=== PATIENT | male | born 1955 | race Caucasian/White ===

== ENCOUNTER → 2020-03-19 | Outpatient (CLI) | payer OTHER | LOC: HYPER 09:48 | DX: L98.492 Non-pressure chronic ulcer of skin of other sites with fat layer exposed (principal); A49.02 Methicillin resistant Staphylococcus aureus infection, unspecified site; B00.89 Other herpesviral infection; R21 Rash and other nonspecific skin eruption; J45.909 Unspecified asthma, uncomplicated; Z96.652 Presence of left artificial knee joint ==

== ENCOUNTER → 2020-04-02 | Outpatient (CLI) | payer OTHER | LOC: HYPER 14:32 | DX: L98.492 Non-pressure chronic ulcer of skin of other sites with fat layer exposed (principal); A49.02 Methicillin resistant Staphylococcus aureus infection, unspecified site; R21 Rash and other nonspecific skin eruption; B00.89 Other herpesviral infection; J45.909 Unspecified asthma, uncomplicated ==

== ENCOUNTER → 2020-05-15 | Outpatient (CLI) | payer OTHER | LOC: HYPER 08:44 | PROVIDERS: ATTEND Emergency Medicine | DX: L98.492 Non-pressure chronic ulcer of skin of other sites with fat layer exposed (principal); B95.62 Methicillin resistant Staphylococcus aureus infection as the cause of diseases classified elsewhere; B00.89 Other herpesviral infection; R21 Rash and other nonspecific skin eruption; J45.909 Unspecified asthma, uncomplicated ==

== ENCOUNTER 2020-05-26 04:46 | Emergency (ER) | payer OTHER ==
[~2020-05-26] VITALS: Ht 167.6 cm; Wt 83.9 kg
[2020-05-26] MEDS ORDERED: VALACYCLOVIR PO (04:59)
[2020-05-26] MEDS ORDERED: PROTONIX40 M2 PO (04:59)
[2020-05-26] MEDS ORDERED: AMITRIPTYLINE PO (05:00)
[2020-05-26] MEDS ORDERED: AMBIEN PO (05:01)
[2020-05-26] MEDS ORDERED: LIDOCAINE TOP (05:05)
[2020-05-26] MEDS ORDERED: TRAMADOL 50 MG50 MG PO (05:06)
[2020-05-26] MEDS ORDERED: MUPIROCIN1 GM TOP (05:07)
[2020-05-26] MEDS ORDERED: ROXICODONE5 M2 PO (05:18)
[2020-05-26 06:17] LABS: ABSOLUTE NEUTROPHILS 5.2 thou/uL (1.4-8.2); BASOPHILS 0.7 % (0.0-2.0); EOSINOPHILS 3.6 % (0.0-3.0); HEMOGLOBIN 11.3 gm/dL (14.0-18.0); LYMPHOCYTES 15.6 % (24.0-44.0); MCH 27.5 pg (26.0-34.0); MCHC 32.2 g/dL (28.0-37.0); MCV 85.2 fL (80.0-100.0); PLATELET COUNT 297 thou/uL (150-400); POLYS 70.1 % (36.0-66.0); RBC 4.11 mil/uL (4.50-6.00); WBC 7.5 thou/uL (4.0-11.0)
[2020-05-26 06:26] LABS: POTASSIUM 3.9 mmol/L (3.5-5.1)
[2020-05-26] MEDS ORDERED: OXYCODONE HCL5 MG PO (06:43)
[2020-05-26 06:51] VITALS: BP 136/73
== END 2020-05-26 06:55 | disposition home or self-care (01) ==
LOC: ER 04:46
PROVIDERS: Emergency Medicine
DX: L02.11 Cutaneous abscess of neck (principal); Z79.899 Other long term (current) drug therapy

== ENCOUNTER → 2020-06-05 | Outpatient (CLI) | payer OTHER ==
[~2020-06-05] MED LIST: AMBIEN PO; AMITRIPTYLINE PO; LIDOCAINE TOP; MUPIROCIN1 GM TOP; OXYCODONE HCL5 MG PO; PROTONIX40 M2 PO; ROXICODONE5 M2 PO; TRAMADOL 50 MG50 MG PO; VALACYCLOVIR PO
== END ==
LOC: HYPER 14:01
PROVIDERS: ATTEND Emergency Medicine
DX: L98.491 Non-pressure chronic ulcer of skin of other sites limited to breakdown of skin (principal); R21 Rash and other nonspecific skin eruption; B00.89 Other herpesviral infection; J45.909 Unspecified asthma, uncomplicated; Z49.02 Encounter for fitting and adjustment of peritoneal dialysis catheter

== ENCOUNTER → 2020-06-19 | Outpatient (CLI) | payer OTHER | LOC: HYPER 11:43 | PROVIDERS: ATTEND Emergency Medicine | DX: L98.491 Non-pressure chronic ulcer of skin of other sites limited to breakdown of skin (principal); B95.62 Methicillin resistant Staphylococcus aureus infection as the cause of diseases classified elsewhere; R21 Rash and other nonspecific skin eruption; B00.89 Other herpesviral infection; J45.909 Unspecified asthma, uncomplicated ==

== ENCOUNTER → 2020-07-30 | Outpatient (CLI) | payer OTHER | LOC: HYPER 14:51 | PROVIDERS: ATTEND Emergency Medicine | DX: L98.492 Non-pressure chronic ulcer of skin of other sites with fat layer exposed (principal); A49.02 Methicillin resistant Staphylococcus aureus infection, unspecified site; R21 Rash and other nonspecific skin eruption; B00.89 Other herpesviral infection; J45.909 Unspecified asthma, uncomplicated ==

== ENCOUNTER → 2020-08-14 | Outpatient (CLI) | payer OTHER | LOC: HYPER 14:08 | PROVIDERS: ATTEND Emergency Medicine | DX: L98.492 Non-pressure chronic ulcer of skin of other sites with fat layer exposed (principal); L97.811 Non-pressure chronic ulcer of other part of right lower leg limited to breakdown of skin; L97.821 Non-pressure chronic ulcer of other part of left lower leg limited to breakdown of skin; L98.421 Non-pressure chronic ulcer of back limited to breakdown of skin; B95.62 Methicillin resistant Staphylococcus aureus infection as the cause of diseases classified elsewhere; R21 Rash and other nonspecific skin eruption; B00.89 Other herpesviral infection; J45.909 Unspecified asthma, uncomplicated ==

== ENCOUNTER → 2020-08-28 | Outpatient (CLI) | payer OTHER | LOC: HYPER 13:02 | PROVIDERS: ATTEND Emergency Medicine | DX: L98.492 Non-pressure chronic ulcer of skin of other sites with fat layer exposed (principal); A49.02 Methicillin resistant Staphylococcus aureus infection, unspecified site; B00.89 Other herpesviral infection; R21 Rash and other nonspecific skin eruption; E66.9 Obesity, unspecified; J45.909 Unspecified asthma, uncomplicated; Z68.28 Body mass index [BMI] 28.0-28.9, adult ==

== ENCOUNTER → 2020-09-11 | Outpatient (CLI) | payer OTHER | LOC: HYPER 13:28 | PROVIDERS: ATTEND Emergency Medicine | DX: L98.492 Non-pressure chronic ulcer of skin of other sites with fat layer exposed (principal); B95.62 Methicillin resistant Staphylococcus aureus infection as the cause of diseases classified elsewhere; R21 Rash and other nonspecific skin eruption; B00.89 Other herpesviral infection; J45.909 Unspecified asthma, uncomplicated ==

== ENCOUNTER → 2020-10-03 | Outpatient (CLI) | payer OTHER ==
[~2020-10-03] VITALS: Ht 170.2 cm; Wt 83.9 kg
[~2020-10-03] MED LIST changes: +APAP650 PO; +BACITRACIN3.5 GM; +BACTROBAN; +DORYX MPC120 MG PO; +IRON325 M1 PO; +LASIX 40 MG TAB40 MG PO; +NORCO 7.5-3251 EACH PO; +POTASSIUM20 PO; +SSD CREAM 1% 5050 GM TOP; +VITAMIN B COMP1 EACH PO; +VITAMIN B-12100 MC1 PO
[2020-10-03 09:37] VITALS: BP 142/78
--- NOTE | 2020-10-03 09:38 | NUR ---
Pain Clinic Assessment: 1. History of Osteoarthritis: Not Applicable History of Rheumatoid Arthritis: Not Applicable 2. Height: 5 ft. 7 in. 170.2 cm. Weight: 185.0 lb. oz. 83.916 kg. Patient's BMI: 29.0 3. Vital Signs: BP: 142/78 Pulse: 75 Resp: 16 Temp: 02 Sat: 100 ECG Mon: 4. Pain Intensity: 9 5. Fall Risk: Dizziness: Y Needs help standing or walking: N Fallen in the last 3 months: N Fall risk comments: 6. Patient on Blood Thinner: None 7. History of Hypertension: N 8. Opioid Therapy greater than 6 weeks: Y Opiate Contract Signed: 9. Risk Assessment Tool Provided: 6-MOD 10. Functional Assessment Tool: 11. Recreational Drug Use: Never Drug Type: Tobacco Use: Never Smoker Tobacco Type: Amount or Packs/day: How Many Years: Alcohol Use: Past use Frequency: Quant:
== END ==
LOC: PAIN 06:48
PROVIDERS: ATTEND Anesthesiology Pain Medicine
DX: L08.89 Other specified local infections of the skin and subcutaneous tissue (principal); B95.62 Methicillin resistant Staphylococcus aureus infection as the cause of diseases classified elsewhere; G89.29 Other chronic pain

== ENCOUNTER → 2020-10-09 | Outpatient (CLI) | payer OTHER | LOC: HYPER 15:27 | PROVIDERS: ATTEND Emergency Medicine | DX: L98.492 Non-pressure chronic ulcer of skin of other sites with fat layer exposed (principal); B95.62 Methicillin resistant Staphylococcus aureus infection as the cause of diseases classified elsewhere; B00.89 Other herpesviral infection; R21 Rash and other nonspecific skin eruption; J45.909 Unspecified asthma, uncomplicated ==

== ENCOUNTER → 2020-11-04 | Outpatient (CLI) | payer OTHER | LOC: HYPER 13:46 | PROVIDERS: ATTEND Emergency Medicine | DX: L98.492 Non-pressure chronic ulcer of skin of other sites with fat layer exposed (principal); A49.02 Methicillin resistant Staphylococcus aureus infection, unspecified site; R21 Rash and other nonspecific skin eruption; B00.89 Other herpesviral infection; E66.9 Obesity, unspecified; J45.909 Unspecified asthma, uncomplicated; Z68.28 Body mass index [BMI] 28.0-28.9, adult ==

== ENCOUNTER → 2020-11-14 | Outpatient (CLI) | payer OTHER | LOC: HYPER 10:04 | PROVIDERS: ATTEND Emergency Medicine | DX: L98.492 Non-pressure chronic ulcer of skin of other sites with fat layer exposed (principal); A49.02 Methicillin resistant Staphylococcus aureus infection, unspecified site; R21 Rash and other nonspecific skin eruption; B00.89 Other herpesviral infection; E66.9 Obesity, unspecified; J45.909 Unspecified asthma, uncomplicated; Z68.28 Body mass index [BMI] 28.0-28.9, adult ==

== ENCOUNTER → 2020-12-04 | Outpatient (CLI) | payer OTHER | LOC: HYPER 10:42 | PROVIDERS: ATTEND Emergency Medicine | DX: L98.492 Non-pressure chronic ulcer of skin of other sites with fat layer exposed (principal); A49.02 Methicillin resistant Staphylococcus aureus infection, unspecified site; R21 Rash and other nonspecific skin eruption; B00.89 Other herpesviral infection; E66.9 Obesity, unspecified; J45.909 Unspecified asthma, uncomplicated; Z68.28 Body mass index [BMI] 28.0-28.9, adult ==

== ENCOUNTER → 2021-01-06 | Outpatient (CLI) | payer OTHER | LOC: HYPER 13:54 | PROVIDERS: ATTEND Emergency Medicine | DX: L98.492 Non-pressure chronic ulcer of skin of other sites with fat layer exposed (principal); B95.62 Methicillin resistant Staphylococcus aureus infection as the cause of diseases classified elsewhere; R21 Rash and other nonspecific skin eruption; J45.909 Unspecified asthma, uncomplicated; Z79.899 Other long term (current) drug therapy ==

== ENCOUNTER → 2021-02-05 | Outpatient (CLI) | payer OTHER ==
[~2021-02-05] MED LIST changes: +AMBIEN 5 MG TABL5 M1 PO; +AMITRIPTYLINE H50 M2 PO; +ARIPIPRAZOLE2 MG PO; +DOXEPIN 50MG CA50 M1 PO; +FAMOTIDINE40 MG PO; +FUROSEMIDE 40 M40 M1 PO; +LEVOTHYROXINE50 MCG PO; +MELOXICAM15 MG PO; +NEURONTIN 300M300 M2 PO; +NORCO7.5 PO; +PROAIR HFA8.5 GM INH; +SUPER B-50 COM1 EACH PO; +VALACYCLOVIR1000 MG PO; +VITAMIN D31250 MC1 PO; +VOLTAREN GEL 1100 G1 TOP
== END ==
LOC: LAB 07:55
PROVIDERS: Student in an Organized Health Care Education/Training Program; ATTEND Surgery
DX: Z01.812 Encounter for preprocedural laboratory examination (principal); Z20.822 Contact with and (suspected) exposure to COVID-19

== ENCOUNTER 2021-02-06 07:20 | Day surgery (SDC) | payer OTHER ==
[~2021-02-06] VITALS: Ht 170.2 cm; Wt 86.2 kg
[2021-02-06 08:37] LABS: CALCIUM 9.1 mg/dL (8.5-10.1); CREATININE 1.1 mg/dL (0.7-1.3); POTASSIUM 4.5 mmol/L (3.5-5.1)
[2021-02-06 10:58] VITALS: BP 123/72
--- NOTE | 2021-02-09 17:06 | PATH ---
[facility] [address] [place] [address] PATHOLOGY RPT PROCEDURE Name: ZINA NIETO Room #: DEP [facility] M.R.#: [id number] Admission: 02/06/21 Date of : 59 Discharge: 02/06/21 Report #: [id number] Path Case #: [id number] LCA Accession Number: [id number] . 01 Material submitted: . neck - POSTERIOR NECK WOUND. Modifiers: posterior . 02 Diagnosis: Posterior neck wound, debridement: - Fragments of fibrovascular connective tissue with extensive fibrinoid degeneration as well as marked acute inflammation, compatible with wound. 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 02 Electronically signed: . Magali Stanley MD, Pathologist NPI- [id number] . 01 Gross description: . Received in formalin labeled "Fanta, Zina, posterior neck wound tissue" are multiple portions of roughened weeks-brown soft tissue measuring in aggregate 4.3 x 4.0 x 0.5 cm. Skin is not definitively identified. [employer] Registrar tissue is submitted in A1. [place] [place]21[place] [facility] 02/06/2021 1545 Local . 02 Pathologist provided ICD-10: L98.9 . 02 CPT . 122895 Specimen Comment: A courtesy copy of this report has been sent to [phone] Specimen Comment: Report sent to Performed at: [address], [place] [id number] MD Vasiliy Lopez MD Phone: [phone] Performed at: [address] [id number] MD Magali Stanley MD Phone: [phone]
--- NOTE | 2021-02-12 09:27 | O ---
[facility] [place] [address] OPERATIVE REPORT Name: ZINA NIETO Room #: DEP [facility] Wing.#: [id number] Admission: 02/06/21 Attend Phys: Jose Hatch MD Discharge: 02/06/21 Date of : 59 Report #: [id number] THIS REPORT FOR: cc: Sharlene Kulkarni Shanna R. DO Joseph, Sigi P. MD ~ DATE OF SERVICE: 02/06/2021 PREOPERATIVE DIAGNOSIS: Chronic nonhealing neck wound. POSTOPERATIVE DIAGNOSIS: Chronic nonhealing neck wound. OPERATIVE PROCEDURE DONE: 1. Excisional debridement of the chronic neck wound. 2. Debridement with a Sonic VAC. 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 INDICATIONS FOR THE PROCEDURE: The patient is a 65-year-old male who presented with chronic wound that he has been having for more than 3 years following the lesion excision. This has been increasing in size. Of late, he has been having significant itching. Patient is advised excisional debridement. DESCRIPTION OF PROCEDURE: After explaining to the patient in detail and informed consent was obtained, the patient was identified in the preoperative holding area. The patient was transferred to the operating room and was placed in supine position. Initially, after induction of anesthesia, the patient was placed in prone position. The neck was prepped and draped in a sterile fashion. Some of the chronic fibrotic tissue and necrotic eschar was excised using #15 blade. Thereafter, I used a Sonic VAC to debride all the superficial tissue. There were healing edges that were noted in the inferior part of the wound. The total measurement of the wound was 13 cm in length and about 12.5 cm in width, very minimally deep and is almost at the level of the skin. A small excess tissue was sent for pathology and also for culture and sensitivity, and a nonadherent Xeroform Dressing was placed. The patient was stable at the end of the procedure. The patient was awoken from anesthesia and was transferred to the recovery room in stable condition. ESTIMATED BLOOD LOSS: Approximately 10 mL. CONDITION OF THE PATIENT: Stable. FLUIDS GIVEN: Per anesthesia notes. [address] [address] OPERATIVE REPORT Name: ZINA NIETO Room #: DEP [facility].#: [id number] Admission: 02/06/21 Attend Phys: Jose Hatch MD Discharge: 02/06/21 Date of : 59 Report #: [id number] SPECIMEN SENT: Excised tissue for culture and sensitivity and biopsy. CONDITION OF THE PATIENT: Stable. <ELECTRONICALLY SIGNED> By: Jose Hatch MD 02/12/21 0927 0953 1022 Jose Hatch MD /nt
[2021-02-12] MEDS ORDERED: ACYCLOVIR 200200 MG PO (15:54)
== END 2021-02-06 10:40 | disposition home or self-care (01) ==
LOC: OR 07:20 → TBA 09:36 → OR 10:23
PROVIDERS: ATTEND Surgery
DX: T81.89XA Other complications of procedures, not elsewhere classified, initial encounter (principal); S11.90XA Unspecified open wound of unspecified part of neck, initial encounter; L98.9 Disorder of the skin and subcutaneous tissue, unspecified; E03.9 Hypothyroidism, unspecified; J45.909 Unspecified asthma, uncomplicated; K21.9 Gastro-esophageal reflux disease without esophagitis; Z98.890 Other specified postprocedural states; Z79.899 Other long term (current) drug therapy; Z96.652 Presence of left artificial knee joint
CPT/HCPCS: 50010; 50101; 50386; 50403; 57119; 57120; 62110; 62900; 70005

== ENCOUNTER → 2021-02-12 | Outpatient (CLI) | payer OTHER ==
[~2021-02-12] MED LIST changes: +ACYCLOVIR 200200 MG PO
== END ==
LOC: HYPER 14:33
PROVIDERS: ATTEND Emergency Medicine
DX: L98.492 Non-pressure chronic ulcer of skin of other sites with fat layer exposed (principal); B95.62 Methicillin resistant Staphylococcus aureus infection as the cause of diseases classified elsewhere; B00.89 Other herpesviral infection; R21 Rash and other nonspecific skin eruption; J45.909 Unspecified asthma, uncomplicated; E66.9 Obesity, unspecified; Z68.28 Body mass index [BMI] 28.0-28.9, adult; Z79.899 Other long term (current) drug therapy

== ENCOUNTER → 2021-02-12 | Outpatient (CLI) | payer OTHER | LOC: LAB 14:36 | PROVIDERS: ATTEND Internal Medicine Gastroenterology | DX: Z01.812 Encounter for preprocedural laboratory examination (principal); Z20.822 Contact with and (suspected) exposure to COVID-19 ==

== ENCOUNTER → 2021-02-16 | Outpatient (CLI) | payer OTHER ==
[~2021-02-16] VITALS: Ht 170.2 cm; Wt 86.2 kg
[~2021-02-16] MED LIST changes: +VITAMIN E1000 UNI2 PO
--- NOTE | 2021-02-19 14:07 | PATH ---
[facility] [address] [place] [address] PATHOLOGY RPT PROCEDURE Name: ZINA NIETO [id number] Admission: 02/16/21 Date of : 59 Discharge: Report #: [id number] Path Case #: [id number] LCA Accession Number: [id number] . 01 Material submitted: . rectum - RECTAL POLYP . 01 Clinical history: . COLONOSCOPY SCREENING . 02 Diagnosis: Polyp, rectal polyp, endoscopic biopsy: - Tubular adenoma. - Negative for high-grade dysplasia. (IUV:pit 02/18/2021) QTP 02/18/2021 1412 Local . 02 Electronically signed: . Magali Stanley MD, Pathologist NPI- [id number] . 01 Gross description: . Received in formalin labeled "Zina Nieto and rectal polyp". Received are 2 weeks-brown soft tissue fragments ranging from 0.1-0.5 cm. Specimen is entirely submitted in cassette A1.(BLJ; 02/17/2021) . BLJ/BLJ 02/17/2021 1718 Local . 02 Pathologist provided ICD-10: D12.8 . 02 CPT . 999867 Specimen Comment: A courtesy copy of this report has been sent to [phone] Specimen Comment: [phone] Specimen Comment: Report sent to / DR ADRIAN Specimen Comment: A duplicate report has been generated due to demographic updates. Performed at: [address], [place] [id number] MD Vasiliy Lopez MD Phone: [phone] Performed at: [address] [id number] MD Magali Stanley MD Phone: [phone]
== END | disposition home or self-care (01) ==
LOC: GI 08:03
PROVIDERS: ATTEND Internal Medicine Gastroenterology
DX: Z12.11 Encounter for screening for malignant neoplasm of colon (principal); D12.8 Benign neoplasm of rectum; D64.9 Anemia, unspecified; E03.9 Hypothyroidism, unspecified; Z98.890 Other specified postprocedural states; Z79.899 Other long term (current) drug therapy; J45.909 Unspecified asthma, uncomplicated; K21.9 Gastro-esophageal reflux disease without esophagitis; Z96.652 Presence of left artificial knee joint
CPT/HCPCS: 62110; 62900

== ENCOUNTER 2021-03-05 12:01 | Day surgery (SDC) | payer OTHER ==
[~2021-03-05] VITALS: Ht 170.2 cm; Wt 86.2 kg
[2021-03-05 13:18] VITALS: BP 126/72
[2021-03-05] MEDS ORDERED: NORCO7.5 PO (15:39)
[2021-03-05 15:55] VITALS: BP 126/72
--- NOTE | 2021-03-11 11:00 | O ---
[facility] [place] [address] OPERATIVE REPORT Name: EMILIAZINA Room #: DEP [place] M.Caitlyn.#: [id number] Admission: 03/05/21 Attend Phys: Jose Hatch MD Discharge: 03/05/21 Date of : 59 Report #: [id number] THIS REPORT FOR: cc: Sharlene Kulkarni Shanna R. DO Joseph, Sigi P. 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 PROCEDURE: Excisional debridement of the chronic ulcer in the nape of the neck. SURGEON: Dr. Jose Hatch. OPERATIVE FINDINGS: The patient is noted to have a chronic nonhealing ulcer on the nape of the neck measuring approximately about 13.5 cm vertically and about 12 cm in transverse direction. There was some necrotic tissue and chronic scabs that seemed to be layering over the ulcer. The floor of the ulcer had a fibrotic looking base; however, was still noted to have good blood flow. INDICATIONS: The patient is a 65-year-old male who has been having a chronic nonhealing ulcer in the nape of the neck for nearly 7-8 years. The patient had undergone debridement of the wound few weeks ago; however, as it was not showing signs of healing and there was some necrotic tissue, the patient was advised excisional debridement of the same. PROCEDURE IN DETAIL: After explaining to the patient in detail and informed consent was obtained, the patient was identified in the preoperative holding area. The patient was transferred to the operating room and was placed in supine position. After induction of anesthesia, the patient was placed in prone position. The nape of the neck was prepped and draped in a sterile fashion. I scraped all the debris on the surface of the wound initially with a curette and a surgical blade. Some nonhealing unhealthy areas were excised using a #15 surgical blade until there was good bleeding that was noted from the floor of the ulcer. The wound was then thoroughly debrided using ____. Thorough saline irrigation of the wound was given. Approximately about 20 mL of Marcaine with epinephrine was injected circumferentially around the incision. Dressing was done with a nonadherent dressing. The patient was stable at the end of the procedure. The patient was awoken from anesthesia and was transferred to the recovery room in stable condition. ESTIMATED BLOOD LOSS: Approximately [address] [address] OPERATIVE REPORT Name: ZINA NIETO Room #: DEP [place] M.R.#: [id number] Admission: 03/05/21 Attend Phys: Jose Hatch MD Discharge: 03/05/21 Date of : 59 Report #: [id number] CONDITION OF THE PATIENT: Stable. FLUIDS GIVEN: Per anesthesia notes. SPECIMENS SENT: Excised tissue from the wound for culture and sensitivity and fungal culture. MD SU Iglesias/SHMUEL/ALEJANDRO <ELECTRONICALLY SIGNED> By: Jose Hatch MD 03/11/21 1100 1451 1528 Jose Hatch MD /nt
== END 2021-03-05 16:45 | disposition home or self-care (01) ==
LOC: OR 12:01 → TBA 12:07 → OR 13:05 → EDSTATUS 13:26 → GI 13:35 → EDSTATUS 14:06 → OR 14:15
PROVIDERS: ATTEND Surgery
DX: T81.89XA Other complications of procedures, not elsewhere classified, initial encounter (principal); L98.499 Non-pressure chronic ulcer of skin of other sites with unspecified severity; D64.9 Anemia, unspecified; E03.9 Hypothyroidism, unspecified; K21.9 Gastro-esophageal reflux disease without esophagitis; Z98.890 Other specified postprocedural states; Z79.899 Other long term (current) drug therapy; Z96.652 Presence of left artificial knee joint; Y83.8 Other surgical procedures as the cause of abnormal reaction of the patient, or of later complication, without mention of misadventure at the time of the procedure; Z20.822 Contact with and (suspected) exposure to COVID-19
CPT/HCPCS: 50010; 50101; 50386; 50403; 57119; 57120; 62110; 62900; 70005

== ENCOUNTER → 2021-03-10 | Outpatient (CLI) | payer OTHER | LOC: HYPER 07:57 | PROVIDERS: ATTEND Emergency Medicine | DX: L98.492 Non-pressure chronic ulcer of skin of other sites with fat layer exposed (principal); A49.02 Methicillin resistant Staphylococcus aureus infection, unspecified site; B00.89 Other herpesviral infection; R21 Rash and other nonspecific skin eruption; J45.909 Unspecified asthma, uncomplicated; E66.9 Obesity, unspecified; Z68.28 Body mass index [BMI] 28.0-28.9, adult ==

== ENCOUNTER → 2021-04-27 | Outpatient (CLI) | payer OTHER | LOC: HYPER 13:35 | PROVIDERS: ATTEND Emergency Medicine | DX: L98.492 Non-pressure chronic ulcer of skin of other sites with fat layer exposed (principal); B95.62 Methicillin resistant Staphylococcus aureus infection as the cause of diseases classified elsewhere; R21 Rash and other nonspecific skin eruption; B00.89 Other herpesviral infection; J45.909 Unspecified asthma, uncomplicated; E66.9 Obesity, unspecified; Z68.28 Body mass index [BMI] 28.0-28.9, adult; Z79.899 Other long term (current) drug therapy ==

== ENCOUNTER → 2021-06-01 | Outpatient (CLI) | payer OTHER | LOC: HYPER 08:48 | PROVIDERS: ATTEND Emergency Medicine | DX: L98.492 Non-pressure chronic ulcer of skin of other sites with fat layer exposed (principal); A49.02 Methicillin resistant Staphylococcus aureus infection, unspecified site; L84 Corns and callosities; R21 Rash and other nonspecific skin eruption; B00.89 Other herpesviral infection; E66.9 Obesity, unspecified; J45.909 Unspecified asthma, uncomplicated; Z68.28 Body mass index [BMI] 28.0-28.9, adult ==

== ENCOUNTER → 2021-06-29 | Outpatient (CLI) | payer OTHER | LOC: HYPER 08:15 | PROVIDERS: ATTEND Emergency Medicine | DX: L98.492 Non-pressure chronic ulcer of skin of other sites with fat layer exposed (principal); A49.02 Methicillin resistant Staphylococcus aureus infection, unspecified site; L84 Corns and callosities; R21 Rash and other nonspecific skin eruption; B00.89 Other herpesviral infection; E66.9 Obesity, unspecified; J45.909 Unspecified asthma, uncomplicated; Z68.28 Body mass index [BMI] 28.0-28.9, adult ==

== ENCOUNTER → 2021-08-10 | Outpatient (CLI) | payer OTHER | LOC: HYPER 12:18 | PROVIDERS: ATTEND Emergency Medicine | DX: L98.492 Non-pressure chronic ulcer of skin of other sites with fat layer exposed (principal); B95.62 Methicillin resistant Staphylococcus aureus infection as the cause of diseases classified elsewhere; B00.89 Other herpesviral infection; R21 Rash and other nonspecific skin eruption; E66.9 Obesity, unspecified; J45.909 Unspecified asthma, uncomplicated; Z68.28 Body mass index [BMI] 28.0-28.9, adult; Z79.899 Other long term (current) drug therapy ==

== ENCOUNTER → 2021-08-31 | Outpatient (CLI) | payer OTHER | LOC: HYPER 12:54 | PROVIDERS: ATTEND Emergency Medicine | DX: L98.492 Non-pressure chronic ulcer of skin of other sites with fat layer exposed (principal); L84 Corns and callosities; A49.02 Methicillin resistant Staphylococcus aureus infection, unspecified site; B00.89 Other herpesviral infection; R21 Rash and other nonspecific skin eruption; E66.9 Obesity, unspecified; J45.909 Unspecified asthma, uncomplicated; Z68.28 Body mass index [BMI] 28.0-28.9, adult ==

== ENCOUNTER → 2021-09-28 | Outpatient (CLI) | payer OTHER ==
[~2021-09-28] MED LIST changes: +ABILIFY 5 MG TAB5 M1 PO; +GABAPENTIN800 M1 PO; +HYDROXYZINE HCL25 M2 PO; +SUPER B COMPLE1 EAC2 PO; -SUPER B-50 COM1 EACH PO; +TYLENOL EXTRA500 MG PO
== END ==
LOC: HYPER 09:21
PROVIDERS: ATTEND Emergency Medicine
DX: L98.492 Non-pressure chronic ulcer of skin of other sites with fat layer exposed (principal); B95.62 Methicillin resistant Staphylococcus aureus infection as the cause of diseases classified elsewhere; R21 Rash and other nonspecific skin eruption; B00.89 Other herpesviral infection; E66.9 Obesity, unspecified; Z68.28 Body mass index [BMI] 28.0-28.9, adult; Z79.899 Other long term (current) drug therapy

== ENCOUNTER → 2021-09-29 | Day surgery (SDC) | payer OTHER ==
[~2021-09-29] VITALS: Ht 167.6 cm; Wt 88.5 kg
[2021-09-29 08:39] LABS: HEMATOCRIT 34.8 % (42.0-52.0); HEMOGLOBIN 11.3 gm/dL (14.0-18.0)
[2021-09-29 08:52] LABS: CALCIUM 8.8 mg/dL (8.5-10.1); CREATININE 1.1 mg/dL (0.7-1.3); POTASSIUM 3.3 mmol/L (3.5-5.1)
[2021-09-29 10:27] VITALS: BP 130/85
[2021-09-29 10:30] VITALS: BP 130/85
[2021-09-29 10:31] VITALS: BP 130/85
--- NOTE | 2021-09-29 12:22 | O ---
[facility] [place] [address] OPERATIVE REPORT Name: ZINA NIETO Room #: [facility].#: [id number] Admission: 09/29/21 Attend Phys: Joseph Ríos MD, Discharge: Date of : 59 Report #: [id number] THIS REPORT FOR: cc: Sharlene Kulkarni,Sharlene Shetty,Joseph Quispe MD FACS ~ DATE OF SERVICE: 09/29/2021 PREOPERATIVE DIAGNOSIS: Nonhealing posterior neck wound. POSTOPERATIVE DIAGNOSIS: Nonhealing posterior neck wound. PROCEDURE PERFORMED: Excisional debridement of skin, subcutaneous tissue, and muscle/fascia of his nonhealing posterior neck wound, ultimately measuring 12 x 12 cm in dimension (144 square cm). Preoperative and postoperative wound measurements did not differ substantially as the overall dimensions of the wound did not change. SURGEON: Joseph Ríos MD MARINE STEWARD: HAMLET Boyd ANESTHESIA: General endotracheal anesthesia. ESTIMATED BLOOD LOSS: Minimal (less than 10 mL). COMPLICATIONS: None appreciated. SPECIMEN: Excised and debrided tissue to pathology. INDICATIONS: The patient is a 66-year-old male who has had a nonhealing posterior neck wound for 6 years that he states started with a pimple while he was incarcerated for multiple DUIs. The patient's wound has since expanded substantially and he has been followed with aggressive wound care management as well as Infectious Disease all to no avail. The patient's wound is extremely leathery and indurated and as such, indication was for debridement for hopeful diagnosis as well as therapeutic measures today. DESCRIPTION OF PROCEDURE: After explaining the risks, benefits and alternatives of the procedure with the patient in detail in the preoperative holding area and obtaining consent, the patient was brought to the operating room and placed supine on his hospital bed. After conducting a thorough timeout procedure, verifying correct patient and procedure, the patient was given general endotracheal anesthesia. Once adequate anesthesia was obtained, he was positioned on the operating room table in the prone position with all pressure points appropriately padded and his posterior neck wound was prepped and draped [address] [place] [address] OPERATIVE REPORT Name: ZINA NIETO Room #: REG [facility].#: [id number] Admission: 09/29/21 Attend Phys: Joseph Ríos MD, Discharge: Date of : 59 Report #: [id number] in standard surgical sterile fashion. Electrocautery was used to circumferentially debride all nonviable skin and subcutaneous tissues from the entirety of the wound carried down to the bed of the wound where there was exposed muscle and fascia. A healthy swath of normal tissue was taken in conjunction with the diseased tissue for hopeful appropriate pathologic diagnosis. The [employer] ultrasonic debridement tool was now used to remove all remaining nonviable tissue and fibrinous exudate from the entirety of the wound. Hemostasis was assured with electrocautery and manual pressure. The wound was then dressed with Xeroform gauze and dressed with 4 x 4's, ABDs and Medipore tape, completing the procedure. At the end of the procedure, all instrument, needle and sponge counts were correct. The patient tolerated the procedure without incident, was awakened in the operating room and transitioned to the recovery room in stable condition with no apparent complications. <ELECTRONICALLY SIGNED> By: Joseph Ríos MD, FACS 09/29/21 1222 0944 1036 Joseph Ríos MD, FACS /nt
--- NOTE | 2021-10-05 16:06 | PATH ---
[facility] [place] [address] PATHOLOGY RPT PROCEDURE Name: EMILIAZINA Room #: REG [facility]..#: [id number] Admission: 09/29/21 Date of : 59 Discharge: Report #: [id number] Path Case #: [id number] LCA Accession Number: [id number] . 01 Material submitted: . neck - POSTERIOR NECK MASS. Modifiers: posterior . 01 Clinical history: . DEBRIDEMENT SKIN LESION BACK OF NECK . 02 Diagnosis: Posterior neck mass, excision: - Skin and subcutaneous tissue with superficial gangrenous-type necrosis, ulceration, granulation tissue and scar tissue. - Negative for fungal organisms or leishmaniasis. - All margins are negative for malignancy. (See comment) . (ANK:dawn; 10/01/2021) REPLACED BY [facility] 10/01/2021 1048 Local . 02 Comment: Special studies are performed on block A3 with appropriate control and show the following results: . Gram stain: Negative for leishmaniasis Giemsa stain: No organisms identified . This case has also been co-reviewed by Dr. Suzy Quezada and Kwaku Munguia who agrees with the diagnosis on 10/01/2021. . (ANK:adwn; 10/01/2021) . 02 Electronically signed: . Grisel Johnson MD, Pathologist NPI- [id number] . 01 Gross description: . Received in formalin labeled "Zina Nieto, posterior neck mass" is an unoriented ellipse of skin measuring 2.1 x 1.3 x 0.6 cm. The skin surface is light weeks-ellsworth and yellow to pink, disrupted, and with no distinct lesions. The margin is inked and the specimen is sectioned into 11 pieces. The specimen is submitted entirely in A1 to A4, with the tips in the last cassette. ([facility]; 09/29/2021) [facility] 09/29/[address] [place] [address] . 02 [place] [address] PATHOLOGY RPT PROCEDURE Name: ZINA NIETO Rogers Room #: REG [facility].#: [id number] Admission: 09/29/21 Date of : 59 Discharge: Report #: [id number] Path Case #: [id number] Pathologist provided ICD-10: L92.8, L98.499, I96 . 02 CPT . 308546, 333785, 912466 Specimen Comment: A courtesy copy of this report has been sent to [phone] Specimen Comment: [phone] Specimen Comment: Report sent to / DR ADRIAN Specimen Comment: A duplicate report has been generated due to demographic updates. Performed at: [address], [place] [id number] MD Vasiliy Lopez MD Phone: [phone] Performed at: [address] [id number] MD Magali Stanley MD Phone: [phone]
== END | disposition home or self-care (01) ==
LOC: OR 06:44
PROVIDERS: ATTEND Surgery
DX: T81.89XA Other complications of procedures, not elsewhere classified, initial encounter (principal); S11.80XA Unspecified open wound of other specified part of neck, initial encounter; L92.8 Other granulomatous disorders of the skin and subcutaneous tissue; L98.499 Non-pressure chronic ulcer of skin of other sites with unspecified severity; I96 Gangrene, not elsewhere classified; E03.9 Hypothyroidism, unspecified; J45.909 Unspecified asthma, uncomplicated; K21.9 Gastro-esophageal reflux disease without esophagitis; Z98.890 Other specified postprocedural states; Z20.822 Contact with and (suspected) exposure to COVID-19; Z79.899 Other long term (current) drug therapy; Y83.8 Other surgical procedures as the cause of abnormal reaction of the patient, or of later complication, without mention of misadventure at the time of the procedure
CPT/HCPCS: 50010; 50101; 50386; 50403; 57119; 57120; 62110; 62900; 70005

== ENCOUNTER → 2021-10-15 | Outpatient (CLI) | payer OTHER | LOC: HYPER 11:28 | PROVIDERS: ATTEND Emergency Medicine | DX: L98.422 Non-pressure chronic ulcer of back with fat layer exposed (principal); L98.492 Non-pressure chronic ulcer of skin of other sites with fat layer exposed; L97.821 Non-pressure chronic ulcer of other part of left lower leg limited to breakdown of skin; L97.811 Non-pressure chronic ulcer of other part of right lower leg limited to breakdown of skin; L02.11 Cutaneous abscess of neck; B95.62 Methicillin resistant Staphylococcus aureus infection as the cause of diseases classified elsewhere; B00.89 Other herpesviral infection; R21 Rash and other nonspecific skin eruption; J45.909 Unspecified asthma, uncomplicated; E66.9 Obesity, unspecified; Z68.28 Body mass index [BMI] 28.0-28.9, adult; Z79.899 Other long term (current) drug therapy ==

== ENCOUNTER → 2021-12-01 | Outpatient (CLI) | payer OTHER | LOC: HYPER 08:00 | PROVIDERS: ATTEND Emergency Medicine | DX: L98.422 Non-pressure chronic ulcer of back with fat layer exposed (principal); L98.492 Non-pressure chronic ulcer of skin of other sites with fat layer exposed; L97.821 Non-pressure chronic ulcer of other part of left lower leg limited to breakdown of skin; L97.811 Non-pressure chronic ulcer of other part of right lower leg limited to breakdown of skin; L02.11 Cutaneous abscess of neck; A49.02 Methicillin resistant Staphylococcus aureus infection, unspecified site; B00.89 Other herpesviral infection; R21 Rash and other nonspecific skin eruption; J45.909 Unspecified asthma, uncomplicated; E66.9 Obesity, unspecified; Z68.28 Body mass index [BMI] 28.0-28.9, adult; Z79.899 Other long term (current) drug therapy ==